=== PATIENT | female | born 1990 ===

== ENCOUNTER 2022-01-29 15:56 | Outpatient (CLI) | payer OTHER | END 2022-01-29 17:30 | disposition home or self-care (01) | LOC: PRENATAL 15:56 | PROVIDERS: ATTEND Obstetrics & Gynecology Maternal & Fetal Medicine | DX: O35.0XX0 Maternal care for (suspected) central nervous system malformation in fetus, not applicable or unspecified (principal); O35.3XX0 Maternal care for (suspected) damage to fetus from viral disease in mother, not applicable or unspecified; O34.40 Maternal care for other abnormalities of cervix, unspecified trimester; Z3A.21 21 weeks gestation of pregnancy; Z91.040 Latex allergy status ==

== ENCOUNTER 2022-06-08 10:04 | Outpatient (CLI) | payer OTHER | END 2022-06-08 13:23 | disposition home or self-care (01) | LOC: OBS/DEL 10:04 | PROVIDERS: ATTEND Obstetrics & Gynecology | DX: O47.1 False labor at or after 37 completed weeks of gestation (principal); Z3A.39 39 weeks gestation of pregnancy; Z91.040 Latex allergy status; Z88.6 Allergy status to analgesic agent ==

== ENCOUNTER 2022-06-18 18:05 | Emergency (ER) | payer OTHER ==
[~2022-06-18] VITALS: Ht 154.9 cm; Wt 47.6 kg
== END 2022-06-19 09:04 | disposition home or self-care (01) ==
LOC: ER 18:05
DX: L02.215 Cutaneous abscess of perineum (principal); Z20.822 Contact with and (suspected) exposure to COVID-19; Z88.3 Allergy status to other anti-infective agents; Z91.040 Latex allergy status